=== PATIENT | female | born 1970 | race Caucasian/White ===

== ENCOUNTER 2017-07-18 21:38 | Observation (INO) ==
--- NOTE | 2017-07-18 21:42 | Emergency Department Note ---
Disposition Clinical Impression: Chest pain Disposition: Admitted As Inpatient Condition: Good Referrals: Ruth Ann Mcmahon, SPECIALTY MOLDER [Primary Care Provider] - Time of Disposition: 00:20 (Dr Oreilly) Chest Pain HPI - General Stated Complaint: Chest Pain Time Seen by Provider: 07/18/17 21:40 Source: patient, EMS Mode of arrival: EMS Limitations: no limitations Vital Signs Reviewed: Yes Nursing Notes Reviewed: Yes - History of Present Illness HPI Narrative: Early this afternoon the patient was at rest and noted to have weakness diffusely. She transferred herself to another room but felt slightly faint. The patient sensation lasted until she developed chest discomfort around 8 PM. Pt complaint: chest pain Onset (ago): hour(s) (1.5) Duration: constant Onset: during rest Pain Location: left chest Severity: mild Quality: aching Pain Radiation: LUE Improves with: nothing Worsens with: nothing Context: other (New onset. The patient states she fell forward approximately 3 days ago landing on her hands and knees. She has a history of similar chest pain approximately less than a year ago where she had a negative stress test.) Associated symptoms: Reports: other (Weakness). Denies: nausea, vomiting, diaphoresis, dyspnea, sense of impending doom, syncope, palpitations, fever, cough, leg swelling Treatments prior to arrival chest pain: aspirin (324 mg, given by EMS ) - Related Data Home Medications Medication Instructions Recorded Confirmed Allopurinol [Zyloprim 300 MG] 300 mg PO DAILY 10/15/14 07/18/17 Gabapentin [Neurontin] 300 mg PO TID 10/15/14 07/18/17 Levothyroxine [Synthroid] 12.5 mcg PO DAILY 10/15/14 07/18/17 ClonazePAM [Klonopin] 1 mg PO TID 12/10/14 07/18/17 FLUoxetine HCl [Prozac] 80 mg PO DAILY 12/10/14 07/18/17 Fluticasone Propionate Nasal 1 spray NS DAILY 12/10/14 07/18/17 [Flonase] Gemfibrozil [Lopid] 600 mg PO BID 12/10/14 07/18/17 Doxepin [Sinequan] 100 mg PO HS 10/19/15 07/18/17 Oxybutynin [Ditropan] 5 mg PO BID 10/19/15 07/18/17 Ergocalciferol (VITAMIN D2) 50,000 unit PO QWEEK 10/21/15 07/18/17 [Vitamin D2 (50,000 UNIT)] Ferrous Sulfate 325 mg PO DAILY 10/21/15 07/18/17 Insulin Glargine,Hum.rec.anlog 58 unit SQ HS 04/16/16 07/18/17 [Lantus Solostar] HumaLOG 1 unit SQ TID 10/15/16 07/18/17 Tradjenta 1 tab PO DAILY 10/15/16 07/18/17 Meclizine [Antivert] 25 mg PO BID 04/10/17 07/18/17 Pantoprazole Sodium [Protonix] 80 mg PO DAILY 04/10/17 07/18/17 Sulfamethoxazole/Trimeth DS 1 each PO BID 07/18/17 07/18/17 [Bactrim DS] Previous Rx's Medication Instructions Recorded Lisinopril [Zestril] 20 mg PO DAILY #30 tablet 10/22/15 HYDROcodone/Acet 5/325 mg [[place] 1 tab PO Q6H PRN 4 Days #10 tab 04/10/17 5-325 mg] Allergies Allergy/AdvReac Type Severity Reaction Status Date / Time simvastatin Allergy Cramping Verified 07/18/17 21:49 of the Muscles All systems ED: reviewed and negative except as stated. Review of Systems: As Per HPI Chest Pain PMH - Past Medical History Medical history: Reports: arthritis (Gout), diabetes, GERD, hyperlipidemia, hypertension, kidney stones, thyroid disease, other (Morbid obesity) Surgical history: Reports: cholecystectomy, orthopedic, other, other Psychiatric history: Reports: anxiety, depression, panic disorder CELLOPHANER history: Reports: no CELLOPHANER history - Social History Smoking Status: Never smoker Alcohol use: Reports: none Drug use: Reports: none Physical Exam - General Limitations: no limitations General appearance: alert, in no apparent distress, obese - Head Head exam: atraumatic - Eye Eye exam: Present: normal appearance, PERRL, EOMI - ENT ENT exam: normal exam, normal oropharynx, mucous membranes moist - Chest Chest inspection: Present: normal inspection, symmetric chest wall rise - Respiratory Respiratory exam: Present: normal lung sounds bilaterally - Cardiovascular Cardiovascular exam: Present: normal rhythm, tachycardia, normal heart sounds - Abdominal Exam Abdominal exam: Present: soft, Non-Tender. Absent: tenderness, distention, guarding, rebound, rigidity - Extremities Exam Extremities exam: Present: normal inspection, full ROM, normal capillary refill. Absent: tenderness, pedal edema, calf tenderness - Back Exam Back exam: Present: normal inspection, full ROM. Absent: tenderness - Neurological Exam Neurological exam: Present: alert, oriented X3, CN II-XII intact - Psychiatric Psychiatric exam: Present: normal affect, normal mood - Skin Skin exam: Present: warm, dry, intact, normal color Course Vital Signs Temperature 97.9 F 07/18/17 21:44 Pulse Rate 106 07/18/17 21:44 Respiratory Rate 20 07/18/17 21:44 Blood Pressure 96/61 07/18/17 21:44 O2 Sat by Pulse Oximetry 95 07/18/17 21:44 Temperature 98.3 F 07/19/17 00:34 Pulse Rate 93 07/19/17 00:34 Respiratory Rate 20 07/19/17 00:34 Blood Pressure 122/72 07/19/17 00:34 O2 Sat by Pulse Oximetry 98 07/19/17 00:34 Oxygen Delivery Oxygen Delivery Room Air Chest Pain - Lab Data Result diagrams: 07/18/17 21:57 07/18/17 21:57 Lab Results 07/18/17 07/18/17 07/18/17 Range/Units 21:57 21:57 21:57 WBC 10.7 (4.3-11.1) K/mcL RBC 4.59 (3.82-4.97) M/mcL Hgb 12.3 (11.5-15.4) g/dL Hct 38.2 (35.3-44.9) % MCV 83.2 (83.0-100.0) fL MCH 26.8 L (28.0-33.3) pg MCHC 32.2 (31.6-35.5) g/dL RDW 14.6 H (11.5-14.5) % Plt Count 337 (140-400) K/mcL MPV 9.0 L (9.4-12.4) fL Immature Gran % 0.2 (0-4) % Seg Neutrophils % 73.5 % Lymphocytes % 19.5 % Monocytes % 5.4 % Eosinophils % 1.0 % Basophils % 0.4 % Neutrophils # 7.8 (1.6-8.9) K/mcL Lymphocytes # 2.1 (0.6-4.6) K/mcL Monocytes # 0.6 (0.0-1.3) K/mcL Eosinophils # 0.1 (0.0-0.6) K/mcL Basophils # 0.0 (0.0-0.2) K/mcL PT 12.7 H (9.4-12.1) Seconds INR 1.2 APTT 40.1 H (26.0-36.0) Seconds Sodium 136 (136-145) mEq/L Potassium 3.7 (3.5-5.1) mEq/L Chloride 101 (98-107) mEq/L Carbon Dioxide 24 (23-29) mEq/L BUN 28 H (6-20) mg/dL Creatinine 1.79 H (0.60-1.20) mg/dL Est GFR ( Amer) 37 L (> 60) Est GFR (Non-Af Amer) 30 L (> 60) BUN/Creatinine Ratio 16 (6-26) Glucose 86 (70-105) mg/dL Calculated Osmolality 287 (280-300) Calcium 9.0 (8.6-10.3) mg/dL Troponin I < 0.03 (< 0.04) ng/mL Urine Color (Yellow) Urine Clarity (Clear) Urine pH (5.0-8.0) pH Units Ur Specific [place] (1.010-1.025) Urine Protein (Neg-Trace) mg/dL Urine Glucose (UA) (Normal) mg/dL Urine Ketones (Negative) mg/dL Urine Blood (Negative) Urine Nitrite (Negative) Urine Bilirubin (Negative) Urine Urobilinogen (Normal) mg/dL Ur Leukocyte Esterase (Negative) Urine Microscopic WBC (0-3) per hpf Ur Squamous Epith Cells (None-Few) per lpf Ur Culture Indicated? (NO) 07/18/17 07/18/17 Range/Units 23:21 23:56 WBC (4.3-11.1) K/mcL RBC (3.82-4.97) M/mcL Hgb (11.5-15.4) g/dL Hct (35.3-44.9) % MCV (83.0-100.0) fL MCH (28.0-33.3) pg MCHC (31.6-35.5) g/dL RDW (11.5-14.5) % Plt Count (140-400) K/mcL MPV (9.4-12.4) fL Immature Gran % (0-4) % Seg Neutrophils % % Lymphocytes % % Monocytes % % Eosinophils % % Basophils % % Neutrophils # (1.6-8.9) K/mcL Lymphocytes # (0.6-4.6) K/mcL Monocytes # (0.0-1.3) K/mcL Eosinophils # (0.0-0.6) K/mcL Basophils # (0.0-0.2) K/mcL PT (9.4-12.1) Seconds INR APTT (26.0-36.0) Seconds Sodium (136-145) mEq/L Potassium (3.5-5.1) mEq/L Chloride (98-107) mEq/L Carbon Dioxide (23-29) mEq/L BUN (6-20) mg/dL Creatinine (0.60-1.20) mg/dL Est GFR ( Amer) (> 60) Est GFR (Non-Af Amer) (> 60) BUN/Creatinine Ratio (6-26) Glucose (70-105) mg/dL Calculated Osmolality (280-300) Calcium (8.6-10.3) mg/dL Troponin I < 0.03 (< 0.04) ng/mL Urine Color Yellow (Yellow) Urine Clarity Clear (Clear) Urine pH 6.0 (5.0-8.0) pH Units Ur Specific [place] 1.015 (1.010-1.025) Urine Protein Negative (Neg-Trace) mg/dL Urine Glucose (UA) Normal (Normal) mg/dL Urine Ketones Negative (Negative) mg/dL Urine Blood Negative (Negative) Urine Nitrite Negative (Negative) Urine Bilirubin Negative (Negative) Urine Urobilinogen Normal (Normal) mg/dL Ur Leukocyte Esterase Trace H (Negative) Urine Microscopic WBC 5-15 H (0-3) per hpf Ur Squamous Epith Cells Many H (None-Few) per lpf Ur Culture Indicated? NO. A (NO) - EKG Data EKG attestation: Yes I reviewed and interpreted this EKG. EKG shows normal: sinus rhythm, axis, intervals, QRS complexes, ST-T waves When compared to previous EKG there are: no significant changes Interpretation: normal EKG, unchanged when compared to prior tracing (date) (08/03)
[2017-07-18] MEDS ORDERED: Ondansetron 4 MG/2 ML VIAL IVP ONE (21:53)
[2017-07-18 22:03] LABS: Basophils % 0.4 %; Eosinophils # 0.1 K/mcL (0.0-0.6); Hematocrit 38.2 % (35.3-44.9); Hemoglobin 12.3 g/dL (11.5-15.4); Immature Granulocytes % 0.2 % (0-4); Lymphocytes # 2.1 K/mcL (0.6-4.6); Lymphocytes % 19.5 %; Mean Corpuscular HGB Conc 32.2 g/dL (31.6-35.5); Mean Corpuscular Hemoglobin 26.8 pg (28.0-33.3); Mean Corpuscular Volume 83.2 fL (83.0-100.0); Monocytes # 0.6 K/mcL (0.0-1.3); Monocytes % 5.4 %; Neutrophils # 7.8 K/mcL (1.6-8.9); Platelet Count 337 K/mcL (140-400); Red Blood Count 4.59 M/mcL (3.82-4.97); Red Cell Distribution Width 14.6 % (11.5-14.5); Segmented Neutrophils % 73.5 %
[2017-07-18 22:12] LABS: INR 1.2; Prothrombin Time 12.7 Seconds (9.4-12.1)
[2017-07-18 22:14] LABS: Activated Partial Thrombo Time 40.1 Seconds (26.0-36.0)
[2017-07-18 22:31] LABS: BUN/Creatinine Ratio 16 (6-26); Blood Urea Nitrogen 28 mg/dL (6-20); Carbon Dioxide 24 mEq/L (23-29); Chloride 101 mEq/L (98-107); Glucose 86 mg/dL (70-105); Osmolality,Calculated 287 (280-300); Potassium 3.7 mEq/L (3.5-5.1); Sodium 136 mEq/L (136-145); Troponin I < 0.03 ng/mL (< 0.04); eGFR For African Americans 37 (> 60); eGFR For Non-African Americans 30 (> 60)
[2017-07-18] MEDS ORDERED: Metoclopramide 10 MG/2 ML VIAL IM STA (22:32)
[2017-07-18] MEDS ORDERED: 0.9 % Sodium Chloride 500 ML IVC ONE (22:57)
[2017-07-18] MEDS ORDERED: Ibuprofen 800 MG TABLET PO ONE (23:00)
[2017-07-19 00:03] LABS: Bilirubin,Urine Negative (Negative); Blood,Urine Negative (Negative); Clarity,Urine Clear (Clear); Color,Urine Yellow (Yellow); Glucose,Urine (UA) Normal (Normal); Ketones,Urine Negative (Negative); Leukocyte Esterase,Urine Trace (Negative); Nitrite,Urine Negative (Negative); Protein,Urine Negative (Neg-Trace); Specific Gravity,Urine 1.015 (1.010-1.025); Urobilinogen,Urine Normal (Normal)
[2017-07-19 00:34] LABS: Squamous Epithelial Cell,Urine Many per lpf (None-Few)
[2017-07-19] MEDS ORDERED: Naloxone 0.4 MG/ML INJ IVP PRN (01:03)
[2017-07-19] MEDS ORDERED: Ketorolac 30 MG/ML VIAL IVP PRN (01:03)
[2017-07-19] MEDS ORDERED: Acetaminophen 325 MG TABLET PO PRN (01:03)
[2017-07-19] MEDS ORDERED: *HR* OxyCODONE Oral Soln 5 MG/5 ML UD.LIQ PO PRN (01:03)
[2017-07-19] MEDS ORDERED: Ibuprofen 400 MG TABLET PO PRN (01:03)
[2017-07-19] MEDS ORDERED: *HR* HYDROcodone/Acet 5/325 mg TABLET PO PRN (01:03)
[2017-07-19] MEDS ORDERED: Levothyroxine 25 MCG TABLET PO SCH (08:30)
[2017-07-19] MEDS ORDERED: Gabapentin 300 MG CAPSULE PO SCH (09:00)
[2017-07-19] MEDS ORDERED: FLUoxetine 20 MG CAPSULE PO SCH (09:00)
[2017-07-19] MEDS ORDERED: INSULIN LISPRO SQ SCH (09:00)
[2017-07-19] MEDS ORDERED: Lisinopril 20 MG TABLET PO SCH (09:00)
[2017-07-19] MEDS ORDERED: Fluticasone Propionate Nasal 50 MCG/SPRAY BOTTLE NS SCH (09:00)
[2017-07-19] MEDS ORDERED: Cholecalciferol (D-3) 1,000 UNIT TABLET PO SCH (09:00)
[2017-07-19] MEDS ORDERED: clonazePAM 0.5 MG TABLET PO SCH (09:00)
[2017-07-19] MEDS ORDERED: TRADJENTA PO SCH (09:00)
--- NOTE | 2017-07-19 12:06 | Internal Med History&Physical ---
Date of Encounter: 07/19/17 Time of Encounter: 11:30 Assessment and Plan (1) Chest pain Current visit: Yes Status: Acute Repeat cardiac enzymes were ordered through emergency room. Doubt myocardial ischemia from history and physical. Qualifiers: Chest pain type: precordial pain Qualified Code(s): R07.2 - Precordial pain (2) Syncope Current visit: Yes Status: Acute Etiology uncertain. I told her further workup could be done as an outpatient after discharge by her PCP [EST, Holter monitor etc.] and/or specialist referral. Orthostatic vital signs will be checked. Qualifiers: Syncope type: unspecified Qualified Code(s): R55 - Syncope and collapse (3) Morbid obesity with BMI of 50.0-59.9, adult Current visit: No Status: Chronic (4) HTN (hypertension) Current visit: No Status: Chronic She has had significant fluctuation in blood pressure since admission. We will do orthostatic vital signs. Qualifiers: Hypertension type: essential hypertension Qualified Code(s): I10 - Essential (primary) hypertension (5) Anemia Current visit: No Status: Chronic Anemia testing 2015 showed no factor deficiency. Suspect secondary to chronic kidney disease. Qualifiers: Anemia type: unspecified type Qualified Code(s): D64.9 - Anemia, unspecified (6) CKD (chronic kidney disease) stage 3, GFR 30-59 ml/min Current visit: No Status: Chronic As per parachute mender. Internal Medicine - H&P: HPI Chief complaint: Chest pain, lightheaded Admitted From: Emergency Dept Plans for Post Hospital Care: Home History of present illness: Ms. Turk is a 46 year old female who came to emergency room after development of lightheadedness and chest discomfort onset approximate 6:30 PM. She states she initially "just felt weird" and laid down for approximately one hour. When she arose she felt dizzy lightheaded and had decreased walking ability. This was soon followed by squeezing sensation in her chest and very minimal dyspnea. She came to emergency room and was evaluated and admitted to [facility] for ongoing care needs. She states her chest discomfort and dizziness have resolved and she feels near her baseline. She reports she has had approximately 6 episodes of very brief syncope lasting less than 5 seconds in the last 6 months with resultant falls. She has no premonition of the episodes and has sustained no significant injuries. She denies loss of bowel or bladder control. No seizure activity has been observed during the episodes. She has not sought further evaluation for the episodes. She denies large distribution strokes or seizures. She denies vertigo sensation. She has diagnosis of diabetic peripheral neuropathy. Past Med Surg Social Fam HX - Past Medical History Medical history: arthritis, diabetes, GERD, hyperlipidemia, hypertension, kidney stones, thyroid disease, other Psychiatric history: anxiety, depression, panic disorder - Past Surgical History Surgical History: cholecystectomy, orthopedic, other, other - Social History Smoking Status: Never smoker Smokeless Tobacco Status: No Alcohol use: none Drug use: none - Family History Father Adopted: No Family Member Ethnicity: Non- Living Status: Hx Family Cardiac Disorders: Yes Hx Family Respiratory Disorders: Yes (COPD) Hx Family Cancer: No Hx Family GI Disorders: No Hx Family Endocrine Disorder: Yes (DM) Hx Family Neuromuscular Disorders: No Hx Family Neurologic Disorders: No Hx Family HEENT Disorders: No Hx Family Autoimmune Disorders: No Internal Medicine - H&P: Meds Allopurinol [Zyloprim 300 MG] 300 mg PO DAILY 10/15/14 [History] Gabapentin [Neurontin] 300 mg PO TID 10/15/14 [History] Levothyroxine [Synthroid] 12.5 mcg PO DAILY 10/15/14 [History] ClonazePAM [Klonopin] 1 mg PO TID 12/10/14 [History] FLUoxetine HCl [Prozac] 80 mg PO DAILY 12/10/14 [History] Fluticasone Propionate Nasal [Flonase] 1 spray NS DAILY 12/10/14 [History] Gemfibrozil [Lopid] 600 mg PO BID 12/10/14 [History] Doxepin [Sinequan] 100 mg PO HS 10/19/15 [History] Oxybutynin [Ditropan] 5 mg PO BID 10/19/15 [History] Ergocalciferol (VITAMIN D2) [Vitamin D2 (50,000 UNIT)] 50,000 unit PO QWEEK [History] Ferrous Sulfate 325 mg PO DAILY 10/21/15 [History] Lisinopril [Zestril] 20 mg PO DAILY #30 tablet 10/22/15 [Rx] Insulin Glargine,Hum.rec.anlog [Lantus Solostar] 58 unit SQ HS 04/16/16 [History ] HumaLOG 1 unit SQ TID 10/15/16 [History] Tradjenta 1 tab PO DAILY 10/15/16 [History] HYDROcodone/Acet 5/325 mg [[place] 5-325 mg] 1 tab PO Q6H PRN 4 Days #10 tab 04/10 [Rx] Meclizine [Antivert] 25 mg PO BID 04/10/17 [History] Pantoprazole Sodium [Protonix] 80 mg PO DAILY 04/10/17 [History] Sulfamethoxazole/Trimeth DS [Bactrim DS] 1 each PO BID 07/18/17 [History] 3 Allergy/AdvReac Type Severity Reaction Status Date / Time simvastatin Allergy Cramping Verified 07/18/17 21:49 of the Muscles All Systems PM: A 10-system review of systems was performed and is negative for pertinent findings except as documented above in the HPI. Review of systems: Review of systems from her September 2015 [facility] hospitalization were reviewed and revised as below. Gen.: Her weight has increased from 143.834 kg on 10/22/2015 164.342 kg on admission now Cardiovascular: She has history of hypertension but denies [place] heart failure angina DVT or pulmonary embolus. She had heart catheterization 04/2013 at [facility] which showed normal coronary arteries and preserved LVEF. She had a Regadenoson nuclear stress test November 2014 which was unremarkable. She had an echocardiogram November 2014 which showed LVEF 65% with moderate LV diastolic dysfunction but no significant valvular abnormality seen. Respiratory: She is a lifelong nonsmoker and has no known chronic lung disease. She does have SUPRIYA and underwent UPPP surgery and no longer wears CPAP. GI: She has GERD and IBS. She has had cholecystectomy. She denies disorders of her liver or exocrine pancreas. She had pancreatitis several years ago without recurrence. : She has had multiple kidney stones of varying composition. She has had ureteral stents in the past. She has chronic kidney disease but denies other kidney or bladder disorders. She follows with a [employer] parachute mender. Neurologic: As per history of present illness Endocrine: She was diagnosed with DM 2 approximately 1998. She has hyperlipidemia and hypothyroidism. 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 She denies gout or osteoporosis Hematology/oncology: She denies blood disorders or internal malignancies. She had anemia in the past with workup during the August 2015 [facility] hospitalization showing no factor deficiency. It was felt likely due to chronic kidney disease Psychiatric: She has anxiety and depression. She has been hospitalized for suicidal thoughts in 2012 but states these have resolved. - Constitutional Vitals: Temp Pulse Resp BP Pulse Ox 98.1 F 98 18 83/43 92 07/19/17 10:41 07/19/17 10:41 07/19/17 10:41 07/19/17 10:41 07/19/17 10:41 Exam: Gen.: She is a well-developed obese female lying in bed who appears in no acute distress HEENT: Head is atraumatic and normocephalic. Eyes: EOMI. There is no scleral icterus. Mouth: Mucosa is moist. Neck: Supple and nontender. There is no thyromegaly or adenopathy noted. Heart: Regular without murmurs gallops or ectopics. Lungs: No wheezes or crackles are heard. Abdomen: Soft and nontender. No masses or guarding are noted. Extremities: There is no cyanosis edema or clubbing noted. Dorsalis pedis and posttibial pulses are 1-2 over 2 bilaterally. Neurologic: Mental status: She is talkative and a good historian. Cranial nerves: Smile is symmetric. Forehead wrinkles bilaterally. Tongue protrudes midline. EOMI. Motor: There is no pronator drift. She is able to lift both legs off the bed. Cerebellar: Finger to nose is intact bilaterally. Skin: Warm and dry. She has psoriasis lesions on her elbows bilaterally more on the left than the right. Internal Med - H&P Results - Labs CBC & Chem 7: 07/18/17 21:57 07/18/17 21:57 Labs: Cardiac Enzymes 07/19/17 Range/Units 06:20 Troponin I < 0.03 (< 0.04) ng/mL
[2017-07-19 12:36] VITALS: BP 97/59
--- NOTE | 2017-07-19 12:52 | Discharge Summary ---
Date of Encounter: 07/19/17 Time of Encounter: 11:30 - Discharge Diagnosis (1) Chest pain Priority: Primary Status: Resolved Qualifiers: Chest pain type: precordial pain Qualified Code(s): R07.2 - Precordial pain (2) Syncope Priority: Secondary Status: Acute Qualifiers: Syncope type: unspecified Qualified Code(s): R55 - Syncope and collapse (3) Morbid obesity with BMI of 50.0-59.9, adult Priority: Secondary Status: Chronic (4) HTN (hypertension) Priority: Secondary Status: Chronic Qualifiers: Hypertension type: essential hypertension Qualified Code(s): I10 - Essential (primary) hypertension (5) CKD (chronic kidney disease) stage 3, GFR 30-59 ml/min Priority: Secondary Status: Chronic Hospital course: Ms. Turk is a 46 year old female who came to emergency room after development of lightheadedness and chest discomfort onset approximate 6:30 PM. She states she initially "just felt weird" and laid down for approximately one hour. When she arose she felt dizzy lightheaded and had decreased walking ability. This was soon followed by squeezing sensation in her chest and very minimal dyspnea. She came to emergency room and was evaluated and admitted to [facility] for ongoing care needs. Initial orders were written by the emergency room physician. I saw her on July 19 and performed a history physical and discharge. Repeat cardiac enzymes showed no evidence of myocardial damage. When I saw her did not think pain was likely to be of myocardial ischemic origin. The etiology of the chest discomfort was not determined with certainty. Orthostatic vital signs showed no decrease in blood pressure but overall readings were borderline low. I felt was reasonable to decrease lisinopril to 10 mg daily and see if syncopal episodes lessened. She stated she felt improved and stable for discharge home. She will follow with her PCP within 1 week. I told her she should have further workup as an outpatient for her syncopal episodes. - Time Spent with Patient Total time spent providing and/or coordinating discharge services: - Discharge Medications Home Medications: Allopurinol [Zyloprim 300 MG] 300 mg PO DAILY 10/15/14 [History] Gabapentin [Neurontin] 300 mg PO TID 10/15/14 [History] Levothyroxine [Synthroid] 12.5 mcg PO DAILY 10/15/14 [History] ClonazePAM [Klonopin] 1 mg PO TID 12/10/14 [History] FLUoxetine HCl [Prozac] 80 mg PO DAILY 12/10/14 [History] Fluticasone Propionate Nasal [Flonase] 1 spray NS DAILY 12/10/14 [History] Gemfibrozil [Lopid] 600 mg PO BID 12/10/14 [History] Doxepin [Sinequan] 100 mg PO HS 10/19/15 [History] Oxybutynin [Ditropan] 5 mg PO BID 10/19/15 [History] Ergocalciferol (VITAMIN D2) [Vitamin D2 (50,000 UNIT)] 50,000 unit PO QWEEK [History] Ferrous Sulfate 325 mg PO DAILY 10/21/15 [History] Insulin Glargine,Hum.rec.anlog [Lantus Solostar] 58 unit SQ HS 04/16/16 [History ] HumaLOG 1 unit SQ TID 10/15/16 [History] Tradjenta 1 tab PO DAILY 10/15/16 [History] HYDROcodone/Acet 5/325 mg [[place] 5-325 mg] 1 tab PO Q6H PRN 4 Days #10 tab 04/10 [Rx] Meclizine [Antivert] 25 mg PO BID 04/10/17 [History] Pantoprazole Sodium [Protonix] 80 mg PO DAILY 04/10/17 [History] Sulfamethoxazole/Trimeth DS [Bactrim Ds] 1 each PO BID 07/18/17 [History] Lisinopril [Zestril] 10 mg PO DAILY #30 tablet 07/19/17 [Rx] Allergies/Adverse Reactions: 3 Allergy/AdvReac Type Severity Reaction Status Date / Time simvastatin Allergy Cramping Verified 07/18/17 21:49 of the Muscles Date of admission: 07/19/17 00:55 Primary care physician: Ruth Ann Mcmahon CNP - Constitutional Vitals: Temp Pulse Resp BP Pulse Ox 98.1 F 95 18 97/59 92 07/19/17 10:41 07/19/17 12:35 07/19/17 10:41 07/19/17 12:35 07/19/17 10:41 - Patient Status Disposition: Home, Self-Care Condition: Good Overall status at discharge: patient is progressing back to baseline - Discharge Instructions Follow Up With: Ruth Ann Mcmahon CNP [Primary Care Provider] - 1 week Forms: ED Satisfaction Letter - Diet and Activity Activity: resume usual activities as tolerated Diet: advance to your usual diet
[2017-07-19] MEDS ORDERED: Insulin DETEMIR 100 UNIT/ML X5UNITS SQ SCH (21:00)
--- NOTE | 2017-07-20 08:22 | Electrocardiograph Report ---
[address] [address] Test Date: 2017-07-18 Pat Name: Jessie Turk Department: [id number] Room: [facility] Gender: F Manager Of Compliance: Cash : 1970 Requested By: Parmjit Nesbitt Order Number: [id number] Reading MD: Farhan Baldwin Measurements Intervals [place] Rate: 103 P: 12 [place]: 165 QRS: 29 QRSD: 101 T: 46 QT: 349 QTc: 408 Interpretive Statements SINUS TACHYCARDIA NONSPECIFIC T-WAVE ABNORMALITY ABNORMAL RHYTHM ECG Electronically Signed On 07-20-2017 8:21:17 EDT by Farhan Baldwin
== END 2017-07-19 14:15 | disposition home or self-care (01) ==
LOC: INPPIK 21:38 → EMEROOPIK 21:38 → INPPIK 07-19 01:00
PROVIDERS: ADMIT Internal Medicine; ATTEND Internal Medicine

== ENCOUNTER 2017-07-24 12:30 | Observation (INO) ==
--- NOTE | 2017-07-24 12:44 | Emergency Department Note ---
Disposition Clinical Impression: Chest pain Disposition: Admitted As Inpatient Condition: Good Chest Pain HPI - General Chief Complaint: ED Chest Pain Stated Complaint: chest pain Time Seen by Provider: 07/24/17 12:34 Source: patient Mode of arrival: EMS Limitations: no limitations Vital Signs Reviewed: Yes Nursing Notes Reviewed: Yes - History of Present Illness HPI Narrative: Patient complains of sharp left sternal chest pain started just prior to arrival. Says it radiates into her shoulder a little bit. she is a Little short of breath. No nausea or vomiting nothing seems to make it better or worse. She has had similar episodes like this in the past but not exactly like this. She has not had any history of heart disease that she is aware of. 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 Duration: constant Onset: during rest Pain Location: left chest Severity: moderate Quality: sharp Pain Radiation: LUE Improves with: nothing Worsens with: nothing Context: recent illness Associated symptoms: Reports: dyspnea Treatments prior to arrival chest pain: aspirin - Related Data Home Medications Medication Instructions Recorded Confirmed Allopurinol [Zyloprim 300 MG] 300 mg PO DAILY 10/15/14 07/18/17 Gabapentin [Neurontin] 300 mg PO TID 10/15/14 07/18/17 Levothyroxine [Synthroid] 12.5 mcg PO DAILY 10/15/14 07/18/17 ClonazePAM [Klonopin] 1 mg PO TID 12/10/14 07/18/17 FLUoxetine HCl [Prozac] 80 mg PO DAILY 12/10/14 07/18/17 Fluticasone Propionate Nasal 1 spray NS DAILY 12/10/14 07/18/17 [Flonase] Gemfibrozil [Lopid] 600 mg PO BID 12/10/14 07/18/17 Doxepin [Sinequan] 100 mg PO HS 10/19/15 07/18/17 Oxybutynin [Ditropan] 5 mg PO BID 10/19/15 07/18/17 Ergocalciferol (VITAMIN D2) 50,000 unit PO QWEEK 10/21/15 07/18/17 [Vitamin D2 (50,000 UNIT)] Ferrous Sulfate 325 mg PO DAILY 10/21/15 07/18/17 Insulin Glargine,Hum.rec.anlog 58 unit SQ HS 04/16/16 07/18/17 [Lantus Solostar] HumaLOG 1 unit SQ TID 10/15/16 07/18/17 Tradjenta 1 tab PO DAILY 10/15/16 07/18/17 Meclizine [Antivert] 25 mg PO BID 04/10/17 07/18/17 Pantoprazole Sodium [Protonix] 80 mg PO DAILY 04/10/17 07/18/17 Sulfamethoxazole/Trimeth DS 1 each PO BID 07/18/17 07/18/17 [Bactrim Ds] Previous Rx's Medication Instructions Recorded HYDROcodone/Acet 5/325 mg [[place] 1 tab PO Q6H PRN 4 Days #10 tab 04/10/17 5-325 mg] Lisinopril [Zestril] 10 mg PO DAILY #30 tablet 07/19/17 Allergies Allergy/AdvReac Type Severity Reaction Status Date / Time simvastatin Allergy Cramping Verified 07/24/17 12:30 of the Muscles All systems ED: reviewed and negative except as stated. Review of Systems: As Per HPI Constitutional: Denies: fever, chills, weakness, weight change Eyes: Denies: eye pain, eye discharge, vision change ENT ED: Denies: ear pain, throat pain, dental pain, hearing loss, epistaxis, congestion, dysphagia Cardiovascular: Reports: as per HPI, chest pain. Denies: palpitations, dyspnea on exertion, edema, syncope Respiratory: Denies: cough, dyspnea, wheezes, hemoptysis, stridor Gastrointestinal: Denies: abdominal pain, nausea, vomiting, diarrhea, constipation, hematemesis, melena, hematochezia Genitourinary: Reports: as per HPI Musculoskeletal: Denies: back pain, neck pain, arthralgia, myalgia Integumentary: Denies: rash, abrasion, lesions Neurological: Denies: headache, weakness, numbness, paresthesias, confusion, abnormal gait, vertigo Psychiatric: Denies: anxiety, depression, suicidal thoughts, homicidal thoughts , auditory hallucinations, visual hallucinations Endocrine: Denies: fatigue Hematological/Lymphatic: Denies: easy bleeding, easy bruising Allergic/Immunologic: Denies: facial swelling, urticaria Chest Pain PMH - Past Medical History Medical history: Reports: arthritis, diabetes, GERD, hyperlipidemia, hypertension, kidney stones, thyroid disease, other Surgical history: Reports: cholecystectomy, orthopedic, other, other Psychiatric history: Reports: anxiety, depression, panic disorder CHILDREN'S ZOO CARETAKER history: Reports: no CHILDREN'S [employer] 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 history - Social History Smoking Status: Never smoker Alcohol use: Reports: none Drug use: Reports: none Physical Exam - General Limitations: no limitations General appearance: alert, in no apparent distress - Head Head exam: atraumatic, normocephalic, normal inspection - Eye Eye exam: Present: normal appearance, PERRL, EOMI - ENT ENT exam: normal exam - Neck Neck exam: Present: normal inspection, full ROM, trachea midline - Chest Chest inspection: Present: normal inspection, symmetric chest wall rise - Respiratory Respiratory exam: Present: normal lung sounds bilaterally - Cardiovascular Cardiovascular exam: Present: regular rate, normal rhythm, normal heart sounds - Abdominal Exam Abdominal exam: Present: soft, Non-Tender. Absent: tenderness, distention, guarding, rebound, rigidity - Extremities Exam Extremities exam: Present: normal inspection - Back Exam Back exam: Present: normal inspection - Neurological Exam Neurological exam: Present: alert, oriented X3 - Psychiatric Psychiatric exam: Present: normal affect, normal mood - Skin Skin exam: Present: warm, dry, intact Course Vital Signs Temperature 98.0 F 07/24/17 12:37 Pulse Rate 96 07/24/17 12:37 Respiratory Rate 15 07/24/17 12:37 Blood Pressure 122/71 07/24/17 12:37 O2 Sat by Pulse Oximetry 92 07/24/17 12:37 Temperature 98.0 F 07/24/17 12:37 Pulse Rate 88 07/24/17 16:08 Respiratory Rate 17 07/24/17 16:25 Blood Pressure 114/60 07/24/17 16:25 O2 Sat by Pulse Oximetry 97 07/24/17 16:08 Oxygen Delivery Oxygen Delivery Nasal Cannula Chest Pain - MDM Narrative Medical decision making narrative: Patient's blood pressure was elevated today so please follow-up through primary care provider for recheck - Lab Data Lab results reviewed: Yes I reviewed the patient's lab results. Result diagrams: 07/24/17 12:50 07/24/17 12:56 Lab Results 07/24/17 07/24/17 07/24/17 Range/Units 12:50 12:56 12:56 WBC 8.0 (4.3-11.1) K/mcL RBC 4.61 (3.82-4.97) M/mcL Hgb 12.2 (11.5-15.4) g/dL Hct 38.0 (35.3-44.9) % MCV 82.4 L (83.0-100.0) fL MCH 26.5 L (28.0-33.3) pg MCHC 32.1 (31.6-35.5) g/dL RDW 14.6 H (11.5-14.5) % Plt Count 325 (140-400) K/mcL MPV 8.9 L (9.4-12.4) fL Immature Gran % 0.4 (0-4) % Seg Neutrophils % 69.3 % Lymphocytes % 21.4 % Monocytes % 5.8 % Eosinophils % 2.8 % Basophils % 0.3 % Neutrophils # 5.6 (1.6-8.9) K/mcL Lymphocytes # 1.7 (0.6-4.6) K/mcL Monocytes # 0.5 (0.0-1.3) K/mcL Eosinophils # 0.2 (0.0-0.6) K/mcL Basophils # 0.0 (0.0-0.2) K/mcL PT 12.1 (9.4-12.1) Seconds INR 1.1 APTT (26.0-36.0) Seconds D-Dimer (0-500) ng/mLFEU Sodium 136 (136-145) mEq/L Potassium 4.3 (3.5-5.1) mEq/L Chloride 102 (98-107) mEq/L Carbon Dioxide 25 (23-29) mEq/L BUN 22 H (6-20) mg/dL Creatinine 1.24 H (0.60-1.20) mg/dL Est GFR ( Amer) 56 L (> 60) Est GFR (Non-Af Amer) 46 L (> 60) BUN/Creatinine Ratio 18 (6-26) Glucose 81 (70-105) mg/dL Calculated Osmolality 284 (280-300) Calcium 9.2 (8.6-10.3) mg/dL Total Bilirubin 0.2 L (0.3-1.0) mg/dL AST 21 (13-39) Units/L ALT 16 (7-52) Units/L Alkaline Phosphatase 88 (34-104) Units/L Troponin I < 0.03 (< 0.04) ng/mL B-Natriuretic Peptide (Less than 100) pg/mL Serum Total Protein 7.2 (6.4-8.9) g/dL Albumin 4.0 (3.5-5.7) g/dL Globulin 3.2 (2.4-3.5) g/dL Albumin/Globulin Ratio 1.3 (1.1-2.2) 07/24/17 07/24/17 07/24/17 Range/Units 12:56 12:56 12:56 WBC (4.3-11.1) K/mcL RBC (3.82-4.97) M/mcL Hgb (11.5-15.4) g/dL Hct (35.3-44.9) % MCV (83.0-100.0) fL MCH (28.0-33.3) pg MCHC (31.6-35.5) g/dL RDW (11.5-14.5) % Plt Count (140-400) K/mcL MPV (9.4-12.4) fL Immature Gran % (0-4) % Seg Neutrophils % % Lymphocytes % % Monocytes % % Eosinophils % % Basophils % % Neutrophils # (1.6-8.9) K/mcL Lymphocytes # (0.6-4.6) K/mcL Monocytes # (0.0-1.3) K/mcL Eosinophils # (0.0-0.6) K/mcL Basophils # (0.0-0.2) K/mcL PT (9.4-12.1) Seconds INR APTT 39.6 H (26.0-36.0) Seconds D-Dimer 903 H (0-500) ng/mLFEU Sodium (136-145) mEq/L Potassium (3.5-5.1) mEq/L Chloride (98-107) mEq/L Carbon Dioxide (23-29) mEq/L BUN (6-20) mg/dL Creatinine (0.60-1.20) mg/dL Est GFR ( Amer) (> 60) Est GFR (Non-Af Amer) (> 60) BUN/Creatinine Ratio (6-26) Glucose (70-105) mg/dL Calculated Osmolality (280-300) Calcium (8.6-10.3) mg/dL Total Bilirubin (0.3-1.0) mg/dL AST (13-39) Units/L ALT (7-52) Units/L Alkaline Phosphatase (34-104) Units/L Troponin I (< 0.04) ng/mL B-Natriuretic Peptide 6 (Less than 100) pg/mL Serum Total Protein (6.4-8.9) g/dL Albumin (3.5-5.7) g/dL Globulin (2.4-3.5) g/dL Albumin/Globulin Ratio (1.1-2.2) - Radiology Data Radiology results reviewed: Yes I reviewed the patient's radiology results. - EKG Data EKG attestation: Yes I reviewed and interpreted this EKG. EKG results narrative: EKG read myself shows sinus rhythm with rate of 92 bpm. 165 ms [place] 97 ms QT interval 345 ms QTC 394 ms R axis XX degrees so nonacute left cardiac per my read
[2017-07-24 13:02] LABS: Basophils % 0.3 %; Eosinophils # 0.2 K/mcL (0.0-0.6); Eosinophils % 2.8 %; Hemoglobin 12.2 g/dL (11.5-15.4); Immature Granulocytes % 0.4 % (0-4); Lymphocytes # 1.7 K/mcL (0.6-4.6); Lymphocytes % 21.4 %; Mean Corpuscular HGB Conc 32.1 g/dL (31.6-35.5); Mean Corpuscular Hemoglobin 26.5 pg (28.0-33.3); Mean Corpuscular Volume 82.4 fL (83.0-100.0); Mean Platelet Volume 8.9 fL (9.4-12.4); Monocytes # 0.5 K/mcL (0.0-1.3); Monocytes % 5.8 %; Neutrophils # 5.6 K/mcL (1.6-8.9); Platelet Count 325 K/mcL (140-400); Red Blood Count 4.61 M/mcL (3.82-4.97); Red Cell Distribution Width 14.6 % (11.5-14.5); Segmented Neutrophils % 69.3 %
[2017-07-24 13:15] LABS: INR 1.1; Prothrombin Time 12.1 Seconds (9.4-12.1)
[2017-07-24 13:20] LABS: Alanine Aminotransferase 16 Units/L (7-52); Albumin/Globulin Ratio 1.3 (1.1-2.2); Alkaline Phosphatase 88 Units/L (34-104); Aspartate Amino Transferase 21 Units/L (13-39); BUN/Creatinine Ratio 18 (6-26); Bilirubin,Total 0.2 mg/dL (0.3-1.0); Blood Urea Nitrogen 22 mg/dL (6-20); Calcium 9.2 mg/dL (8.6-10.3); Carbon Dioxide 25 mEq/L (23-29); Chloride 102 mEq/L (98-107); Globulin 3.2 g/dL (2.4-3.5); Glucose 81 mg/dL (70-105); Osmolality,Calculated 284 (280-300); Potassium 4.3 mEq/L (3.5-5.1); Sodium 136 mEq/L (136-145); Total Protein 7.2 g/dL (6.4-8.9); eGFR For African Americans 56 (> 60); eGFR For Non-African Americans 46 (> 60)
[2017-07-24 13:24] LABS: Troponin I < 0.03 ng/mL (< 0.04)
[2017-07-24] MEDS ORDERED: Isovue-370 500 ML INFUS..BTL IV ONE ×2 (14:01→17:30)
[2017-07-24] MEDS ORDERED: 0.9 % Sodium Chloride 1,000 ML ONE (14:42)
--- NOTE | 2017-07-24 14:42 | Electrocardiograph Report ---
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
[2017-07-24] MEDS ORDERED: Nitroglycerin 0.4 MG TAB.SUBL SL ONE (14:49)
[2017-07-24] MEDS ORDERED: Naloxone 0.4 MG/ML INJ IVP PRN (17:30)
[2017-07-24] MEDS ORDERED: 0.9 % Sodium Chloride 1,000 ML IVC SCH (17:30)
[2017-07-24] MEDS: Sulfamethoxazole/Trimeth DS 1 EACH TABLET PO SCH (20:28)
[2017-07-24] MEDS: clonazePAM 0.5 MG TABLET PO SCH (20:28)
[2017-07-24] MEDS: Gabapentin 300 MG CAPSULE PO SCH (20:28)
[2017-07-24] MEDS: *HR* HYDROcodone/Acet 5/325 mg TABLET PO PRN (20:30)
[2017-07-24] MEDS ORDERED: INSULIN LISPRO SQ SCH (21:00)
[2017-07-24] MEDS ORDERED: Insulin DETEMIR 100 UNIT/ML X5UNITS SQ SCH (21:00)
[2017-07-25 06:47] LABS: Basophils % 0.5 %; Eosinophils # 0.2 K/mcL (0.0-0.6); Eosinophils % 3.5 %; Hematocrit 39.3 % (35.3-44.9); Hemoglobin 12.2 g/dL (11.5-15.4); Immature Granulocytes % 0.2 % (0-4); Lymphocytes # 2.1 K/mcL (0.6-4.6); Lymphocytes % 32.2 %; Mean Corpuscular Hemoglobin 26.5 pg (28.0-33.3); Mean Corpuscular Volume 85.4 fL (83.0-100.0); Mean Platelet Volume 9.1 fL (9.4-12.4); Monocytes # 0.4 K/mcL (0.0-1.3); Monocytes % 5.8 %; Neutrophils # 3.7 K/mcL (1.6-8.9); Platelet Count 309 K/mcL (140-400); Red Cell Distribution Width 14.7 % (11.5-14.5); Segmented Neutrophils % 57.8 %
[2017-07-25 07:05] LABS: Calcium 8.6 mg/dL (8.6-10.3); Potassium 4.2 mEq/L (3.5-5.1)
--- NOTE | 2017-07-25 07:24 | Electrocardiograph Report ---
[address] [address] Test Date: 2017-07-25 Pat Name: Jessie Turk Department: 9202 Room: [facility] Gender: F Department Head: Ramos : 1970 Requested By: Carlos Call Order Number: [id number] Reading MD: Yahir Dyson Measurements Intervals [place] Rate: 85 P: 34 WV: 168 QRS: 46 QRSD: 112 T: 52 QT: 383 QTc: 425 Interpretive Statements SINUS RHYTHM Electronically Signed On 07-25-2017 7:23:02 EDT by Yahir Dyson
[2017-07-25 07:35] VITALS: BP 105/58
[2017-07-25] MEDS: Sulfamethoxazole/Trimeth DS 1 EACH TABLET PO SCH (08:33)
[2017-07-25] MEDS: clonazePAM 0.5 MG TABLET PO SCH (08:34)
[2017-07-25] MEDS: Gabapentin 300 MG CAPSULE PO SCH (08:35)
[2017-07-25] MEDS: Insulin LISPRO 300 UNITS/3 ML VIAL SQ SCH ×2 (08:45→12:52)
[2017-07-25] MEDS ORDERED: FLUoxetine 20 MG CAPSULE PO SCH (09:00)
[2017-07-25] MEDS ORDERED: Levothyroxine 25 MCG TABLET PO SCH (09:00)
[2017-07-25] MEDS ORDERED: TRADJENTA PO SCH (09:00)
[2017-07-25] MEDS ORDERED: Fluticasone Propionate Nasal 50 MCG/SPRAY BOTTLE NS SCH (09:00)
[2017-07-25] MEDS: *HR* HYDROcodone/Acet 5/325 mg TABLET PO PRN (11:06)
--- NOTE | 2017-07-25 12:00 | Internal Med History&Physical ---
Date of Encounter: 07/25/17 Time of Encounter: 11:20 Assessment and Plan (1) Chest pain Current visit: Yes Status: Acute Doubt myocardial ischemia. Repeat cardiac enzymes were ordered through emergency room. Qualifiers: Chest pain type: precordial pain Qualified Code(s): R07.2 - Precordial pain (2) CKD (chronic kidney disease) stage 3, GFR 30-59 ml/min Current visit: No Status: Chronic As per corporation pilot. Internal Medicine - H&P: HPI Chief complaint: Chest discomfort Admitted From: Emergency Dept Plans for Post Hospital Care: Home History of present illness: Ms. Turk is a 46 year old female who came to emergency room stating she had sudden onset of a discomfort in her chest radiate to her shoulder and left arm approximately 12:15 PM while at leisure. She reports she had eaten small quantity of food approximately 20 minutes earlier. She had difficulty swallowing the food. She denies GERD symptoms. She called the squad and was brought to emergency room. She was evaluated and found to have elevated d- dimer. Chest CTA did not show evidence of PE. She was admitted to [facility] floor for ongoing care needs. She was hospitalized last week at [facility] with chest pain. TN was ruled out and the chest pain was not felt to be of myocardial ischemic origin. The etiology of the pain was not determined with certainty. She has history of hypertension but denies TN heart failure angina DVT or pulmonary embolus. She had heart catheterization 04/2013 at [facility] which showed normal coronary arteries and preserved LVEF. She had a Regadenoson nuclear stress test November 2014 which was unremarkable. She had an echocardiogram November 2014 which showed LVEF 65% with moderate LV diastolic dysfunction but no significant valvular abnormality seen. Past Med Surg Social Fam HX - Past Medical History Medical history: arthritis, diabetes, GERD, hyperlipidemia, hypertension, kidney stones, thyroid disease, other Additional medical history: stage 3 kidney disease Psychiatric history: anxiety, depression, panic disorder - Past Surgical History Surgical History: cholecystectomy, orthopedic, other, other Additional surgical history: right ankle - Social History Smoking Status: Never smoker Smokeless Tobacco Status: No Alcohol use: none Drug use: none - Family History Father Adopted: No Family Member Ethnicity: Non- Living Status: Hx Family Cardiac Disorders: Yes (dad) Hx Family Respiratory Disorders: Yes (mom) Hx Family Cancer: Yes (mom and sister) Hx Family GI Disorders: Yes Hx Family Genitourinary Disorders: Yes Hx Family Endocrine Disorder: Yes Hx Family Musculoskeletal Disorders: Yes (mom OA) Hx Family Neuromuscular Disorders: No Hx Family Neurologic Disorders: No Hx Family HEENT Disorders: No Hx Family Autoimmune Disorders: No Hx Family Reproductive Disorders: No Hx Family Psychosocial Disorders: Yes (sister and mother have schizophrenia and bipolar) Hx Family Medical Disorders: Yes Internal Medicine - H&P: Meds Allopurinol [Zyloprim 300 MG] 300 mg PO DAILY 10/15/14 [History] Gabapentin [Neurontin] 300 mg PO TID 10/15/14 [History] Levothyroxine [Synthroid] 12.5 mcg PO DAILY 10/15/14 [History] ClonazePAM [Klonopin] 1 mg PO TID 12/10/14 [History] FLUoxetine HCl [Prozac] 80 mg PO DAILY 12/10/14 [History] Fluticasone Propionate Nasal [Flonase] 1 spray NS DAILY 12/10/14 [History] Gemfibrozil [Lopid] 600 mg PO BID 12/10/14 [History] Doxepin [Sinequan] 100 mg PO HS 10/19/15 [History] Oxybutynin [Ditropan] 5 mg PO BID 10/19/15 [History] Ergocalciferol (VITAMIN D2) [Vitamin D2 (50,000 UNIT)] 50,000 unit PO QWEEK [History] Ferrous Sulfate 325 mg PO DAILY 10/21/15 [History] Insulin Glargine,Hum.rec.anlog [Lantus Solostar] 58 unit SQ HS 04/16/16 [History ] HumaLOG 1 unit SQ TID 10/15/16 [History] Tradjenta 1 tab PO DAILY 10/15/16 [History] HYDROcodone/Acet 5/325 mg [[place] 5-325 mg] 1 tab PO Q6H PRN 4 Days #10 tab 04/10 [Rx] Meclizine [Antivert] 25 mg PO BID 04/10/17 [History] Pantoprazole Sodium [Protonix] 80 mg PO DAILY 04/10/17 [History] Sulfamethoxazole/Trimeth DS [Bactrim Ds] 1 each PO BID 07/18/17 [History] Lisinopril [Zestril] 10 mg PO DAILY #30 tablet 07/19/17 [Rx] 3 Allergy/AdvReac Type Severity Reaction Status Date / Time simvastatin Allergy Cramping Verified 07/24/17 12:30 of the Muscles All Systems PM: A 10-system review of systems was performed and is negative for pertinent findings except as documented above in the HPI. Review of systems: Review of systems from her [facility] hospitalization last week were reviewed and revised as below. Gen.: Her weight has increased from 143.834 kg on 10/22/2015 165.38 kg on admission now Cardiovascular: As per history of present illness Respiratory: She is a lifelong nonsmoker and has no known chronic lung disease. She does have SUPRIYA and underwent UPPP surgery and no longer wears CPAP. GI: She has GERD and IBS. She has had cholecystectomy. She denies disorders of her liver or exocrine pancreas. She had pancreatitis several years ago without recurrence. : She has had multiple kidney stones of varying composition. She has had ureteral stents in the past. She has chronic kidney disease but denies other kidney or bladder disorders. She follows with a [place] corporation pilot. She has overactive bladder diagnosis. Neurologic: She denies large distribution strokes or seizures. She has diabetic peripheral neuropathy. Endocrine: She was diagnosed with DM 2 approximately 1998. She has hyperlipidemia and hypothyroidism. 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 She denies gout or osteoporosis Hematology/oncology: She denies blood disorders or internal malignancies. She had anemia in the past with workup during the August 2015 [facility] hospitalization showing no factor deficiency. It was felt likely due to chronic kidney disease Psychiatric: She has anxiety and depression. She has been hospitalized for suicidal thoughts in 2012 but states these have resolved. - Constitutional Vitals: Temp Pulse Resp BP Pulse Ox 97.6 F 95 16 105/58 96 07/25/17 07:35 07/25/17 07:35 07/25/17 07:35 07/25/17 07:35 07/25/17 10:23 Exam: Gen.: She is a well-developed morbidly obese female lying in bed who appears in no acute distress. HEENT: Head is atraumatic and normocephalic. Eyes: EOMI. There is no scleral icterus. Mouth: Mucosa is moist. Neck: Supple and nontender. There is no thyromegaly or adenopathy noted. Heart: Regular without murmurs gallops or ectopics Chest: She has nontender chest wall to palpation. Abdomen: She has a large abdomen. It is nontender to palpation. No masses or guarding are noted. Extremities: There is no cyanosis edema or clubbing noted. Dorsalis pedis and posttibial pulses are trace palpable bilaterally. She has no pain on internal/ external rotation or palpation of the left shoulder. Neurologic: Mental status: She is talkative and a good historian. Cranial nerves: Smile is symmetric. Forehead wrinkles bilaterally. Tongue protrudes midline. EOMI. Motor: There is no pronator drift. Cerebellar: Finger to nose is intact bilaterally. Skin: Warm and dry Internal Med - H&P Results - Labs CBC & Chem 7: 07/25/17 06:28 07/25/17 06:28 Labs: Short CBC 07/25/17 Range/Units 06:28 WBC 6.4 (4.3-11.1) K/mcL Hgb 12.2 (11.5-15.4) g/dL Hct 39.3 (35.3-44.9) % Plt Count 309 (140-400) K/mcL Neutrophils # 3.7 (1.6-8.9) K/mcL BMP 07/25/17 06:28 Sodium 135 L Potassium 4.2 Chloride 104 Carbon Dioxide 25 BUN 21 H Creatinine 1.44 H Glucose 158 H Calcium 8.6 Cardiac Enzymes 07/24/17 07/25/17 Range/Units 19:01 06:28 Troponin I < 0.03 < 0.03 (< 0.04) ng/mL
--- NOTE | 2017-07-25 12:09 | Discharge Summary ---
Date of Encounter: 07/25/17 Time of Encounter: 11:20 - Discharge Diagnosis (1) Chest pain Priority: Primary Status: Acute Qualifiers: Chest pain type: precordial pain Qualified Code(s): R07.2 - Precordial pain (2) CKD (chronic kidney disease) stage 3, GFR 30-59 ml/min Priority: Secondary Status: Chronic Hospital course: Ms. Turk is a 46 year old female who came to emergency room stating she had sudden onset of a discomfort in her chest radiate to her shoulder and left arm approximately 12:15 PM while at leisure. She reports she had eaten small quantity of food approximately 20 minutes earlier. She had difficulty swallowing the food. She denies GERD symptoms. She called the squad and was brought to emergency room. She was evaluated and found to have elevated d- dimer. Chest CTA did not show evidence of PE. She was admitted to [facility] for ongoing care needs. Initial orders were written by the emergency room physician. I saw her on July 25 and performed a history physical and discharge. When I saw her I did not think the pain was of myocardial ischemic origin. I reviewed with her the repeat cardiac enzymes which were normal. I reviewed the CTA report showing no evidence of PE. I told her I was uncertain of the etiology of the pain but I felt it was possibly of GI origin or less likely chest wall origin. She will continue her PPI at home. She will discontinue oxybutynin for now since it can predispose to dyspepsia. She will remain off lisinopril because of borderline hypotension and ongoing orthostatic symptoms on occasion at home. Room air oximetry will be checked on a 6 minute walk prior to discharge. She will be discharged home and follow with her PCP within 1 week. - Time Spent with Patient Total time spent providing and/or coordinating discharge services: - Discharge Medications Home Medications: Allopurinol [Zyloprim 300 MG] 300 mg PO DAILY 10/15/14 [History] Gabapentin [Neurontin] 300 mg PO TID 10/15/14 [History] Levothyroxine [Synthroid] 12.5 mcg PO DAILY 10/15/14 [History] ClonazePAM [Klonopin] 1 mg PO TID 12/10/14 [History] FLUoxetine HCl [Prozac] 80 mg PO DAILY 12/10/14 [History] Fluticasone Propionate Nasal [Flonase] 1 spray NS DAILY 12/10/14 [History] Gemfibrozil [Lopid] 600 mg PO BID 12/10/14 [History] Doxepin [Sinequan] 100 mg PO HS 10/19/15 [History] Ergocalciferol (VITAMIN D2) [Vitamin D2 (50,000 UNIT)] 50,000 unit PO QWEEK [History] Ferrous Sulfate 325 mg PO DAILY 10/21/15 [History] Insulin Glargine,Hum.rec.anlog [Lantus Solostar] 58 unit SQ HS 04/16/16 [History ] HumaLOG 1 unit SQ TID 10/15/16 [History] Tradjenta 1 tab PO DAILY 10/15/16 [History] HYDROcodone/Acet 5/325 mg [[place] 5-325 mg] 1 tab PO Q6H PRN 4 Days #10 tab 04/10 [Rx] Meclizine [Antivert] 25 mg PO BID 04/10/17 [History] Pantoprazole Sodium [Protonix] 80 mg PO DAILY 04/10/17 [History] Sulfamethoxazole/Trimeth DS [Bactrim Ds] 1 each PO BID 07/18/17 [History] Allergies/Adverse Reactions: 3 Allergy/AdvReac Type Severity Reaction Status Date / Time simvastatin Allergy Cramping Verified 07/24/17 12:30 of the Muscles Date of admission: 07/24/17 16:11 Primary care physician: Ruth Ann Mcmahon CNP - Constitutional Vitals: Temp Pulse Resp BP Pulse Ox 97.6 F 95 16 105/58 96 07/25/17 07:35 07/25/17 07:35 07/25/17 07:35 07/25/17 07:35 07/25/17 10:23 - Patient Status Disposition: Home, Self-Care Condition: Good - Discharge Instructions Follow Up With: Ruth Ann Mcmahon CNP [Primary Care Provider] - 1 week - Diet and Activity Activity: resume usual activities as tolerated Diet: diabetic diet
== END 2017-07-25 14:55 | disposition home or self-care (01) ==
LOC: EMEROOPIK 12:30 → INPPIK 12:30
PROVIDERS: ADMIT Internal Medicine; ATTEND Internal Medicine